=== PATIENT | female | born 1985 | race African-American/Black ===

== ENCOUNTER 2019-06-29 08:58 | Day surgery (SDC) | payer BC ==
--- NOTE | 2019-06-23 07:30 | PCM.HP.2 ---
H&P History of Present Illness - General Date of Service: 06/29/19 Admit Problem/Dx: Renaldo is a 34-year-old 3 para 10-1 white female with history of recurrent loss. Patient underwent evaluation for recurrent loss which consisted in part of an HSG which showed abnormal fill in the right side of the uterus and right fallopian tube. Patient's been advised to undergo laparoscopy, chromotubation, hysteroscopy with possible D&C. The procedure, risks, benefits, limitations and follow-up were discussed in detail the patient. She appears understand and wish to proceed. 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 He treated miscarriage with Cytotec Excedrin micrograms which brought about complete miscarriage. She was noted to have low progesterone with that and was on progesterone supplementation. She is sexually active. She desires . She denies any STI's in the past. She has had 1 vaginal delivery on 07/29/2010. That at 37 weeks gestational age after 18 hours of labor?delivering a 6 lbs. 3 oz. male named Ramiro. She had previous miscarriage on 02/01/2019 prior to the April 2019 miscarriage. She had menarche at age 11. Cycles every 25-28 days. No control to time conception. Last normal menstrual period was 2018. She is not had a normal cycle since her last miscarriage. Past medical history: 1. Miscarriage 2 2. Normal spontaneous vaginal delivery 1 3. Atypical squamous cells of undetermined significance on Pap smear in 2018 Past surgical history: 1. Rotator cuff repair 2006 Allergies: None Medications: 1 vitamins 1 daily Family history: Mother is alive and well but with arthritis. Father is alive and well. One brother is alive and well. Paternal grandmother is alive but had a stroke at approximately age 60+ years. Maternal grandfather is secondary to tongue and throat cancerwas a smoker. Paternal grandmother is alive but has Alzheimer's disease. No other known family history of cancer, bleeding or clotting disorders, anesthesia related issues or or infertility related issues. Social history: Patient is . She lives in [place]. 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 She is a college graduate. She does not use any significant loss of alcohol, drugs or tobacco. 's name is J Luis Judd. Review of systems: In general patient has no complaints. Skin: Negative Lungs: No infectious symptoms or shortness of breath Cardiovascular: No chest pain or exercise intolerance Breasts: No lumps, changes in size, pain, dimpling, discharge or axillary or supraclavicular concerns. GI: Negative : Negative Musculoskeletal: Negative Neurological: Negative In general the patient is well-developed, well-nourished, pleasant female of stated age in no acute distress. Skin is warm dry without lesions. HEENT, neck and back within normal limits. Lungs are clear with good breath sounds in all lung gautam. Cardiovascular exam shows regular and rhythm without murmurs. Breast exam deferred Abdomen is flat, soft, nontender without masses or organomegaly. Positive bowel sounds are noted. No inguinal lymphadenopathy or hernias are noted. Genital per speculum bimanual shows normal external genitalia, BUS, pubic hair pattern. There is normal support, secretions and estrogenization vagina. Uterus is small, anterior, freely mobile, without parametrial induration or adnexal abnormalities. Extremities and neurological exam are grossly within normal limits. Source of Information: Patient History Limitations: Reports: No Limitations - Related Data Allergies/Adverse Reactions: Allergies Allergy/AdvReac Type Severity Reaction Status Date / Time adhesive tape Allergy Rash Verified 06/21/19 08:52 H&P Review of Systems - Review of Systems: Review Of Systems: See Below Exam - Exam Exam: See Below *Q Meaningful Use (ADM) - VTE Risk Assess *Q Each Risk Factor Represents 1 Point: None Total Score 1 Point Risk Factors: 0 Each Risk Factor Represents 2 Points: None Total Score 2 Point Risk Factors: 0 Each Risk Factor Represents 3 Points: None Total Score 3 Point Risk Factors: 0 Each Risk Factor Represents 5 Points: None Total Score 5 Point Risk Factors: 0 Venous Thromboembolism Risk Factor Score *Q: 0 Problem List Initiated/Reviewed/Updated: Yes Assessment/Plan Comment:: 1. 34-year-old 3 para 1021 female with history of recurrent loss 2 with an abnormal hysterosalpingogram with what appears to be a filling defect in the right uterus and right fallopian tube. 2. Generally healthy female at low-risk for surgery 3. Desiring . Plan: 1. Laparoscopy with chromotubation, hysteroscopy with possible D&C scheduled for 06/29/2019, risks, benefits, limitations and follow-up were discussed with patient. She appears understand and wishes to proceed. 2. DVT prophylaxis with SCDs 3. Infection prophylaxis with Ancef 2 g IV preop 4. Preoperative labs to include CBC, urinalysis and urine test.
[~2019-06-29 08:58] MED LIST: Dexamethasone 4 MG/ML 5 ML MDV ONE; Lactated Ringers 0 ML ONE; Lidocaine 1%/Sod Bicarbonate in NS 8.4% 1 ML Syringe IDERM PRN; Midazolam 1 MG/ML 2 ML SDV ONE; Ondansetron 4 MG/2 ML SDV ONE; Propofol 200 MG/20 ML SDV ONE; Rocuronium 50 MG/5 ML Vial ONE; Sodium Chloride 0.9% 10 ML Syringe FLUSH PRN; fentaNYL 250 MCG/5 ML SDV ONE
--- NOTE | 2019-06-29 09:24 | PCM.PREANE ---
Preanesthetic Assessment - Anesthesia/Transfusion/Family Hx Anesthesia History: Prior Anesthesia Without Reaction Family History of Anesthesia Reaction: No Transfusion History: No Prior Transfusion(s) Intubation History: Unknown - Review of Systems General: No Symptoms Pulmonary: No Symptoms Cardiovascular: No Symptoms Gastrointestinal: No Symptoms (GERD) Neurological: No Symptoms (Lower back pain), Numbness (left leg on occasion.) Other: Reports: None, Sinus Problem (Seasonal allergies) - Physical Assessment NPO Status Date: 06/28/19 NPO Status Time: 21:00 Vital Signs: HR: 98 BP: 115/71 Resp: 20 Temp: 99.5F Sat: 98% Height: 1.66 m Weight: 71.214 kg ASA Class: 1 Mental Status: Alert & Oriented x3 Airway Class: Mallampati = 2 Dentition: Reports: Normal Dentition, Caries Thyro-Mental Finger Breadths: 3 Mouth Opening Finger Breadths: 3 ROM/Head Extension: Full Lungs: Clear to Auscultation, Normal Respiratory Effort Cardiovascular: Regular Rate, Regular Rhythm, No Murmurs - Lab Values: Laboratory Last Values WBC 4.33 K/mm3 (3.98-10.04) 06/28/19 11:53 RBC 5.37 M/mm3 (3.98-5.22) H 06/28/19 11:53 Hgb 15.4 gm/dl (11.2-15.7) 06/28/19 11:53 Hct 46.8 % (34.1-44.9) H 06/28/19 11:53 MCV 87.2 fl (79.4-94.8) 06/28/19 11:53 MCH 28.7 pg (25.6-32.2) 06/28/19 11:53 MCHC 32.9 g/dl (32.2-35.5) 06/28/19 11:53 RDW Std Deviation 40.5 fL (36.4-46.3) 06/28/19 11:53 Plt Count 316 K/mm3 (182-369) 06/28/19 11:53 MPV 10.4 fl (9.4-12.3) 06/28/19 11:53 Neut % (Auto) 45.4 % (34.0-71.1) 06/28/19 11:53 Lymph % (Auto) 42.5 % (19.3-51.7) 06/28/19 11:53 [place] % (Auto) 9.2 % (4.7-12.5) 06/28/19 11:53 Eos % (Auto) 1.8 (0.7-5.8) 06/28/19 11:53 Baso % (Auto) 0.9 % (0.1-1.2) 06/28/19 11:53 Neut # (Auto) 1.96 K/mm3 (1.56-6.13) 06/28/19 11:53 Lymph # (Auto) 1.84 K/mm3 (1.18-3.74) 06/28/19 11:53 [place] # (Auto) 0.40 K/mm3 (0.24-0.36) H 06/28/19 11:53 Eos # (Auto) 0.08 K/mm3 (0.04-0.36) 06/28/19 11:53 Baso # (Auto) 0.04 K/mm3 (0.01-0.08) 06/28/19 11:53 Urine Color Yellow (Yellow) 06/28/19 11:53 Urine Appearance Clear (Clear) 06/28/19 11:53 Urine pH 6.0 (5.0-8.0) 06/28/19 11:53 Ur Specific [place] 1.010 (1.005-1.030) 06/28/19 11:53 Urine Protein Negative (Negative) 06/28/19 11:53 Urine Glucose (UA) Negative (Negative) 06/28/19 11:53 Urine Ketones Negative (Negative) 06/28/19 11:53 Urine Occult Blood Negative (Negative) 06/28/19 11:53 Urine Nitrite Negative (Negative) 06/28/19 11:53 Urine Bilirubin Negative (Negative) 06/28/19 11:53 Urine Urobilinogen 0.2 (0.2-1.0) 06/28/19 11:53 Ur Leukocyte Esterase Negative (Negative) 06/28/19 11:53 Urine HCG, Qual Negative (NEGATIVE) 06/28/19 11:53 Above labs reviewed and noted and within acceptable ranges to proceed with scheduled procedure. - Allergies Allergies/Adverse Reactions: Allergies Allergy/AdvReac Type Severity Reaction Status Date / Time adhesive tape Allergy Rash Verified 06/28/19 15:08 - Anesthesia Plan Pre-Op Medication Ordered: None - Acknowledgements Anesthesia Type Planned: General Anesthesia Pt an Appropriate Candidate for the Planned Anesthesia: Yes Alternatives and Risks of Anesthesia Discussed w Pt/Guardian: Yes Pt/Guardian Understands and Agrees with Anesthesia Plan: Yes PreAnesthesia Questionnaire - Past Surgical History Female Surgical History: Reports: Breast Implant Musculoskeletal Surgical History: Reports: Other (See Below) (Rotator Cuff Repair in 2007) - CURRENT (IN HOUSE) MEDS Current Meds: Current Medications Lactated Ringer's (Ringers, Lactated) 1,000 mls @ 125 mls/hr IV ASDIRECTED SABRINA Stop: 06/29/19 23:00 Lidocaine/Sodium Bicarbonate (Buffered Lidocaine 1% In Ns 8.4%) 0.25 ml IDERM ONETIME PRN PRN Reason: Prior to IV Start Stop: 06/29/19 18:00 Sodium Chloride (Saline Flush) 10 ml FLUSH ASDIRECTED PRN PRN Reason: Keep Vein Open Stop: 06/29/19 18:00 Discontinued Medications Dexamethasone (Dexamethasone) Confirm Administered Dose 20 mg .ROUTE .STK-MED ONE Stop: 06/29/19 07:33 Fentanyl (Sublimaze) Confirm Administered Dose 250 mcg .ROUTE .STK-MED ONE Stop: 06/29/19 07:34 Lactated Ringer's (Ringers, Lactated) Confirm Administered Dose 1,000 mls @ as directed .ROUTE .STK-MED ONE Stop: 06/29/19 07:33 Midazolam HCl (Versed 1 Mg/Ml) Confirm Administered Dose 2 mg .ROUTE .STK-MED ONE Stop: 06/29/19 07:34 Ondansetron HCl (Zofran) Confirm Administered Dose 4 mg .ROUTE .STK-MED ONE Stop: 06/29/19 07:33 Propofol (Diprivan 20 Ml) Confirm Administered Dose 200 mg .ROUTE .STK-MED ONE Stop: 06/29/19 07:33 Rocuronium [place] (Zemuron) Confirm Administered Dose 50 mg .ROUTE .STK-MED ONE Stop: 06/29/19 07:33
[2019-06-29] MEDS ORDERED: Rocuronium 50 MG/5 ML Vial ONE (09:36)
[2019-06-29] MEDS ORDERED: Ketorolac 30 MG/ML SDV ONE (09:36)
[2019-06-29] MEDS ORDERED: Ondansetron 4 MG/2 ML SDV ONE (09:36)
[2019-06-29] MEDS ORDERED: HYDROmorphone 0.5 MG/0.5 ML Syringe ONE (09:36)
[2019-06-29] MEDS ORDERED: Dexamethasone 4 MG/ML SDV ONE (09:36)
[2019-06-29] MEDS ORDERED: ceFAZolin 1 GM Vial ONE (09:36)
[2019-06-29] MEDS ORDERED: Lactated Ringers 1,000 ML ONE (09:36)
[2019-06-29] MEDS ORDERED: Phenylephrine/Normal Saline 100 MCG/ML 10 ML Syringe ONE (09:36)
[2019-06-29] MEDS ORDERED: Lidocaine 1% 6 ML ONE (09:36)
[2019-06-29] MEDS ORDERED: Propofol 200 MG/20 ML SDV ONE (09:37)
[2019-06-29] MEDS ORDERED: fentaNYL 250 MCG/5 ML SDV ONE (09:37)
[2019-06-29] MEDS ORDERED: Midazolam 1 MG/ML 2 ML SDV ONE (09:37)
[2019-06-29] MEDS ORDERED: Methylene Blue 50 MG/10 ML Ampule ONE (09:55)
[2019-06-29] MEDS ORDERED: Bupivacaine 0.5% 30 ML SDV ONE (09:55)
[2019-06-29] MEDS ORDERED: Dextrose 5% in Water 100 ML ONE (09:57)
[2019-06-29] MEDS: Lactated Ringers 1,000 ML IV SCH ×2 (10:20→14:36)
[2019-06-29] MEDS ORDERED: Neostigmine Methylsulfate 1 MG/ML 5 ML Syringe ONE (10:57)
[2019-06-29] MEDS ORDERED: diphenhydrAMINE 50 MG/ML SDV IVPUSH PRN (11:04)
[2019-06-29] MEDS ORDERED: ePHEDrine 50 MG/ML SDV IVPUSH PRN (11:04)
[2019-06-29] MEDS ORDERED: HYDROmorphone 0.5 MG/0.5 ML Syringe IVPUSH PRN (11:04)
[2019-06-29] MEDS ORDERED: fentaNYL 100 MCG/2 ML SDV IVPUSH PRN (11:04)
[2019-06-29] MEDS ORDERED: Ondansetron 4 MG/2 ML SDV IVPUSH PRN ×2 (11:04→11:54)
[2019-06-29] MEDS ORDERED: Phenylephrine 1 MG in Sodium Chloride 0.9% 10 ML IV SCH (11:15)
[2019-06-29] MEDS ORDERED: Ibuprofen 600 MG Tab PO PRN (11:54)
[2019-06-29] MEDS ORDERED: Ketorolac 30 MG/ML SDV IVPUSH SCH (12:00)
--- NOTE | 2019-06-29 12:01 | PCM.OPNOTE ---
- General Post-Op/Procedure Note Date of Surgery/Procedure: 06/29/19 Operative Procedure(s): Laparoscopy, chromotubation, lysis of pelvic adhesions, hysteroscopy Findings: Laparoscopic findings included the following: -Pelvic adhesions involving the omentum and the anterior abdominal wall and the posterior wall of the uterus and the posterior cul-de-sac -Essentially normal fill and spill of methylene blue from left fallopian tube with chromotubation -Proximal blockage of right fallopian tube with no fill or spill of methylene blue was chromotubation -Apparent extravasation of methylene blue in the right side of the uterine body showing up with blue discoloration of myometrium and serosal surfaces with chromotubation -Uterine septum -Significant endometrial adhesions on both the right and left side of the septum with tubal ostia not visualized. 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 -Ovaries bilaterally were within normal limits as was the anterior cul-de-sac area, the appendix and the right and left liver lobes. Pre Op Diagnosis: 1. Recurrent loss 2. 2. Abnormal HSG with nonfilling right fallopian tube and apparent extravasation of radiopaque dye at the time of HSG. Post-Op Diagnosis: Same with findings as outlined: -Pelvic adhesions involving the omentum and the anterior abdominal wall and the posterior wall of the uterus and the posterior cul-de-sac. -Essentially normal fill and spill of methylene blue from left fallopian tube with chromotubation. -Proximal blockage of right fallopian tube with no fill or spill of methylene blue was chromotubation. -Apparent extravasation of methylene blue in the right side of the uterine body showing up with blue discoloration of myometrium and serosal surfaces with chromotubation. -Uterine septum. -Significant endometrial adhesions on both the right and left side of the septum with tubal ostia not visualized. 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 - Ovaries bilaterally were within normal limits as was the anterior cul-de-sac area, the appendix and the right and left liver lobes. Anesthesia Technique: General ET Tube Other Anesthesia Type: Marcaine 0.25% localtotal 10 mL Primary Surgeon: Adeel Gibbons Anesthesia Provider: Lilly Ramsey Fluid Replacement, Intraop: 1,300 Output, Urine Amount: 175 EBL in mLs: 5 Drain/Tube Comments:: Indwelling bladder catheter during surgery only. Complications: None Condition: Good Free Text/Narrative:: Surgery duration: 29 minutes Procedure: The patient was taken to the operating room and placed in supine position on the operative table. She had sequential compression stockings in place for DVT prophylaxis and had been given 2 g of Ancef IV for infection prophylaxis. She was administered general endotracheal anesthesia. After administration of anesthesia the patient was placed in dorsal lithotomy position and prepped and draped in usual fashion. An indwelling bladder catheter was placed as was a uterine manipulator. It should be noted the uterus sounded to 9 cm and was noted to be posterior to mid position. Infraumbilical incision site and suprapubic site were then infiltrated with approximately 3-4 mL of Marcaine 0.5%. 5 mm incisions were made in these areas. Verres needle was placed in the infraumbilical incision site and pneumoperitoneum was established was in 3 L of CO2. The laparoscopic sleeve was then placed as was the scope. Under direct visualization the suprapubic site was developed with a 5 mm port. A 5 mm right abdominal port was also placed visualization. Pelvis was evaluated findings as described below: -Pelvic adhesions involving the omentum adhered to the anterior abdominal wall. Also the posterior wall of the uterus adhered to the posterior cul-de-sac -Essentially normal fill and spill of methylene blue from left fallopian tube with chromotubation -Proximal blockage of right fallopian tube with no fill or spill of methylene blue was chromotubation -Apparent extravasation of methylene blue in the right side of the uterine body showing up with blue discoloration of myometrium and serosal surfaces with chromotubation -Ovaries bilaterally were within normal limits as was the anterior cul-de-sac area, the appendix and the right and left liver lobes. Omental adhesions were taken down as were the posterior uterine adhesions. Chromotubation was performed and showed normal fill and spill of the left fallopian tube. There is no fill nor spill from the right fallopian tube consistent with what appeared to be a proximal occlusion. There was however extravasation of dye into the myometrium and subserosal areas of the right side only of the uterus. The lower sleeve was removed under direct visualization. Upper port was removed without problems. The 2 port site incisions were closed with single subcuticular interrupted suture of 3-0 Monocryl. The incisions were further approximated with Dermabond skin glue. The uterine manipulator was removed. Patient was repositioned and hysteroscopy was performed. A 12 hysteroscope was placed. The endometrial cavity was distended with normal saline and hysteroscopy was performed. Findings are as follows: -Uterine septum -Significant endometrial adhesions on both the right and left side of the septum with tubal ostia not visualized. 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 Hysteroscopy was then discontinued. Was removed. The single-tooth tenaculum was removed from this anterior lip of the cervix. Fluid was removed from the vaginal vault. The Thomas catheter was removed. Patient was returned to the supine position and awakened from general endotracheal anesthesia. She left the operating room in good condition.
--- NOTE | 2019-06-29 12:11 | PCM.POSTAN ---
POST ANESTHESIA ASSESSMENT - MENTAL STATUS Mental Status: Alert - VITAL SIGNS Vital Signs: Last Vital Signs Temp 97.2f 06/29/19 1153 Pulse 109 06/29/19 1153 Resp 12 06/29/19 1153 BP 106/61 06/29/19 1153 Pulse Ox 98 06/29/19 1153 - RESPIRATORY Respiratory Status: Respiratory Rate WNL, Airway Patent, O2 Saturation Stable, Supplemental Oxygen - CARDIOVASCULAR CV Status: Pulse Rate WNL, Blood Pressure Stable - GASTROINTESTINAL GI Status: No Symptoms - POST OP HYDRATION Hydration Status: Adequate & Stable
--- NOTE | 2019-06-29 12:57 | PCM48HPAN ---
Post Anesthesia Note - EVALUATION WITHIN 48HRS OF ANESTHETIC Vital Signs in Normal Range: Yes Patient Participated in Evaluation: Yes Respiratory Function Stable: Yes Airway Patent: Yes Cardiovascular Function Stable: Yes Hydration Status Stable: Yes Pain Control Satisfactory: Yes Nausea and Vomiting Control Satisfactory: Yes Mental Status Recovered: Yes Vital Signs: Last Vital Signs Temp 36.3 C 06/29/19 12:33 Pulse 84 06/29/19 12:33 Resp 15 06/29/19 12:33 BP 105/62 06/29/19 12:33 Pulse Ox 100 06/29/19 12:33
== END 2019-06-29 15:21 | disposition home or self-care (01) ==
LOC: JD.SDS 08:58
PROVIDERS: ATTEND Obstetrics & Gynecology
DX: N96 Recurrent pregnancy loss (principal); R93.89 Abnormal findings on diagnostic imaging of other specified body structures; N73.6 Female pelvic peritoneal adhesions (postinfective); Z91.048 Other nonmedicinal substance allergy status
CPT/HCPCS: 36415; 49329; 58350; 81003; 81025; 85025; J0690; J1100; J1170; J1885; J2001; J2250; J2405; J2704; J2710; J3010; J3490; J7060; J7120; 00952; J2370

== ENCOUNTER 2020-12-15 14:11 | Inpatient (IN) | payer BC ==
[2020-12-15] MEDS ORDERED: Sodium Chloride 0.9% 10 ML Syringe FLUSH PRN (14:40)
[2020-12-15] MEDS ORDERED: Ondansetron 4 MG/2 ML SDV IVPUSH PRN (14:40)
[2020-12-15] MEDS ORDERED: Nalbuphine 10 MG/1 ML Vial IVPUSH PRN (14:40)
[2020-12-15] MEDS ORDERED: Oxytocin/Lactated Ringers 20 UNIT/1,000 ML BAG IV SCH (14:45)
[2020-12-15] MEDS ORDERED: FLU VACC QS2020-21(6MOS UP)/PF 60 MCG/0.5 ML SYRINGE IM ONE (15:00)
[2020-12-15] MEDS ORDERED: Lidocaine 1.5% with EPINEPHrine 1:200,000 5 ML Amp ONE (15:00)
[2020-12-15] MEDS: Lactated Ringers 1,000 ML IV SCH ×2 (15:02→15:45)
[2020-12-15] MEDS ORDERED: fentaNYL 100 MCG/2 ML SDV EPIDUR PRN (15:13)
[2020-12-15] MEDS ORDERED: diphenhydrAMINE 50 MG/ML SDV IVPUSH PRN (15:13)
[2020-12-15] MEDS ORDERED: ePHEDrine 50 MG/ML SDV IVPUSH PRN (15:13)
[2020-12-15] MEDS ORDERED: Bupivacaine/fentaNYL/NS 100 ML Bag EPIDUR PRN (15:13)
--- NOTE | 2020-12-15 15:34 | PCM.PREANE ---
Preanesthetic Assessment - Procedure Proposed Procedure: Continuous Labor epidural - Anesthesia/Transfusion/Family Hx Anesthesia History: Prior Anesthesia Without Reaction Transfusion History: No Prior Transfusion(s) Intubation History: Unknown - Review of Systems General: No Symptoms Pulmonary: No Symptoms Cardiovascular: No Symptoms Gastrointestinal: No Symptoms (GERD) Neurological: No Symptoms (Low back pain) Other: Reports: None, Sinus Problem (Seasonal) - Physical Assessment Vital Signs: Last Vital Signs Temp 98.4 F 12/15/20 14:12 Pulse 101 H 12/15/20 14:12 Resp 16 12/15/20 14:12 BP 130/76 12/15/20 14:12 Pulse Ox 100 12/15/20 14:12 Height: 1.63 m Weight: 85.91 kg ASA Class: 2 Mental Status: Alert & Oriented x3 Airway Class: Mallampati = 2 Dentition: Reports: Normal Dentition Thyro-Mental Finger Breadths: 3 Mouth Opening Finger Breadths: 3 ROM/Head Extension: Full Lungs: Clear to Auscultation, Normal Respiratory Effort Cardiovascular: Regular Rate, Regular Rhythm - Lab Values: Laboratory Last Values WBC 7.00 K/mm3 (3.98-10.04) 12/15/20 14:57 RBC 4.34 M/mm3 (3.98-5.22) 12/15/20 14:57 Hgb 11.9 gm/dl (11.2-15.7) 12/15/20 14:57 Hct 36.7 % (34.1-44.9) 12/15/20 14:57 MCV 84.6 fl (79.4-94.8) 12/15/20 14:57 MCH 27.4 pg (25.6-32.2) 12/15/20 14:57 MCHC 32.4 g/dl (32.2-35.5) 12/15/20 14:57 RDW Std Deviation 44.6 fL (36.4-46.3) 12/15/20 14:57 Plt Count 241 K/mm3 (182-369) 12/15/20 14:57 MPV 11.5 fl (9.4-12.3) 12/15/20 14:57 Neut % (Auto) 73.2 % (34.0-71.1) H 12/15/20 14:57 Lymph % (Auto) 17.1 % (19.3-51.7) L 12/15/20 14:57 [place] % (Auto) 9.0 % (4.7-12.5) 12/15/20 14:57 Eos % (Auto) 0.3 (0.7-5.8) L 12/15/20 14:57 Baso % (Auto) 0.1 % (0.1-1.2) 12/15/20 14:57 Neut # (Auto) 5.12 K/mm3 (1.56-6.13) 12/15/20 14:57 Lymph # (Auto) 1.20 K/mm3 (1.18-3.74) 12/15/20 14:57 [place] # (Auto) 0.63 K/mm3 (0.24-0.36) H 12/15/20 14:57 Eos # (Auto) 0.02 K/mm3 (0.04-0.36) L 12/15/20 14:57 Baso # (Auto) 0.01 K/mm3 (0.01-0.08) 12/15/20 14:57 - Allergies Allergies/Adverse Reactions: Allergies Allergy/AdvReac Type Severity Reaction Status Date / Time adhesive tape Allergy Rash Verified 12/15/20 14:22 - Acknowledgements Anesthesia Type Planned: Epidural Pt an Appropriate Candidate for the Planned Anesthesia: Yes Alternatives and Risks of Anesthesia Discussed w Pt/Guardian: Yes Pt/Guardian Understands and Agrees with Anesthesia Plan: Yes 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 - SUBSTANCE USE Tobacco Use Status *Q: Never Tobacco User Recreational Drug Use History: No - HOME MEDS Home Medications: Home Meds Ibuprofen [Motrin] 600 mg PO Q4H PRN tablet 06/29/19 [Rx] Pnv No.95/Ferrous Fum/Folic AC [ Tablet] 1 tab PO DAILY 06/29/19 [History] - CURRENT (IN HOUSE) MEDS Current Meds: Current Medications Diphenhydramine HCl (Diphenhydramine 50 Mg/Ml Sdv) 25 mg IVPUSH Q6H PRN PRN Reason: pruritis Ephedrine Sulfate (Ephedrine 50 Mg/Ml Sdv) 5 mg IVPUSH ASDIRECTED PRN PRN Reason: Hypotension Fentanyl (Fentanyl 100 Mcg/2 Ml Sdv) 100 mcg EPIDUR Q3H PRN PRN Reason: Pain Fentanyl/Bupivacaine HCl (Bupivacaine/Fentanyl/Ns 100 Ml Bag) 100 ml EPIDUR ASDIRECTED PRN PRN Reason: Pain Lactated Ringer's (Ringers, Lactated) 1,000 mls @ 100 mls/hr IV ASDIRECTED SABRINA Last Admin: 12/15/20 15:02 Dose: 999 mls/hr Documented by: Oxytocin/Lactated Ringer's (Pitocin In Lr 20 Units/1,000 Ml) 20 unit in 1,000 mls @ 500 mls/hr IV .CONTINUOUS SABRINA Nalbuphine HCl (Nalbuphine 10 Mg/1 Ml Vial) 10 mg IVPUSH Q2H PRN PRN Reason: Pain Ondansetron HCl (Ondansetron 4 Mg/2 Ml Sdv) 4 mg IVPUSH Q4H PRN PRN Reason: Nausea/Vomiting Sodium Chloride (Sodium Chloride 0.9% 10 Ml Syringe) 10 ml FLUSH ASDIRECTED PRN PRN Reason: Keep Vein Open Discontinued Medications Influenza Virus Vaccine (Flu Vacc [id number](6mos Up)/Pf 60 Mcg/0.5 Ml Syringe) 60 mcg IM .ONCE ONE Stop: 12/15/20 15:01
--- NOTE | 2020-12-15 15:44 | PCM.LDHP ---
L&D History of Present Illness - General Date of Service: 12/15/20 Admit Problem/Dx: Patient Status Order with Admit Dx/Problem 12/15/20 14:12 Patient Status [ADT] Routine 12/15/20 14:40 Patient Status [ADT] Routine Admission Diagnosis/Problem Admission Diagnosis/Problem Source of Information: Patient History Limitations: Reports: No Limitations - History of Present Illness Introduction:: 35-year-old -0-2-1 CARLOS 12/19/2020 estimated gestational age 39 weeks 3 days as labor delivery complaining of contractions since approximately noon today. Patient had been in the clinic on 12/12/2020 cervix 2 cm dilated 30% effaced soft posterior -3 station. On examination today and labor and delivery patient 3 to 4 cm dilated, 80% effaced, soft, posterior, -2 station presentation Vertex. No significant problems during this . No chronic medications. GBS negative /11/2019 blood type O+ antibody screen negative, hemoglobin/hematocrit 13.8/40.9 platelets 316,000, rubella immune, serology nonreactive, urine culture no growth after 2 days, Mykel B surface antigen negative, V-. GC chlamydia probe negative. 02/10/2021/hematocrit 12.5/37.4 platelets 254,000 OB glucose screen 150 serology nonreactive 09/16/2020 fasting blood sugar 86, 1 hour 153, 2-hour 132, 3-hour 128. 11/07/2020 hemoglobin/hematocrit 11.8/36.7 platelets 238,000. /11/2020 group B strep negative. In labor and delivery. Epidural being placed at this time. 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 Social & Family History - Tobacco Use Tobacco Use Status *Q: Never Tobacco User - Recreational Drug Use Recreational Drug Use: No H&P Review of Systems - Review of Systems: Review Of Systems: See Below General: Reports: No Symptoms HEENT: Reports: No Symptoms Pulmonary: Reports: No Symptoms Cardiovascular: Reports: No Symptoms Gastrointestinal: Reports: No Symptoms Genitourinary: Reports: No Symptoms Musculoskeletal: Reports: No Symptoms Skin: Reports: No Symptoms Psychiatric: Reports: No Symptoms Neurological: Reports: No Symptoms Hematologic/Lymphatic: Reports: No Symptoms Immunologic: Reports: No Symptoms L&D Exam - Exam Exam: See Below - Vital Signs Vital Signs: Last Vital Signs Temp 98.4 F 12/15/20 14:12 Pulse 101 H 12/15/20 14:12 Resp 16 12/15/20 14:12 BP 130/76 12/15/20 14:12 Pulse Ox 100 12/15/20 14:12 Weight: 189 lb 6.4 oz - OB Specific Contraction Intensity: Moderate Movement: Active Heart Tones: Present Heart Tones per Min: 130 Heart Rate (FHR) Variability: Moderate (6-25 bmp) Presentation: Vertex - Barcenas Score Barcenas Score Cervix Position: Posterior Barcenas Score Consistency: Soft Barcenas Score Effacement: >80% Barcenas Score Dilation: 3-4 cm Barcenas Score Infant's Station: -2 Barcenas Score Total: 8 - Exam General: Alert, Oriented HEENT: Conjunctiva Clear, Mucosa Moist & [place] Neck: Supple, Trachea Midline Lungs: Clear to Auscultation, Normal Respiratory Effort Cardiovascular: Regular Rate, Regular Rhythm GI/Abdominal Exam: Normal Bowel Sounds, Non-Tender Genitourinary: Normal external exam Extremities: Normal Inspection, Non-Tender, No Pedal Edema, Normal Capillary Refill Skin: Warm, Dry, Intact Psychiatric: Alert, Normal Affect, Normal Mood - Patient Data Lab Results Last 24 hrs: Laboratory Results - last 24 hr 12/15/20 12/15/20 Range/Units 14:44 14:57 WBC 7.00 (3.98-10.04) K/mm3 RBC 4.34 (3.98-5.22) M/mm3 Hgb 11.9 (11.2-15.7) gm/dl Hct 36.7 (34.1-44.9) % MCV 84.6 (79.4-94.8) fl MCH 27.4 (25.6-32.2) pg MCHC 32.4 (32.2-35.5) g/dl RDW Std Deviation 44.6 (36.4-46.3) fL Plt Count 241 (182-369) K/mm3 MPV 11.5 (9.4-12.3) fl Neut % (Auto) 73.2 H (34.0-71.1) % Lymph % (Auto) 17.1 L (19.3-51.7) % [place] % (Auto) 9.0 (4.7-12.5) % Eos % (Auto) 0.3 L (0.7-5.8) Baso % (Auto) 0.1 (0.1-1.2) % Neut # (Auto) 5.12 (1.56-6.13) K/mm3 Lymph # (Auto) 1.20 (1.18-3.74) K/mm3 [place] # (Auto) 0.63 H (0.24-0.36) K/mm3 Eos # (Auto) 0.02 L (0.04-0.36) K/mm3 Baso # (Auto) 0.01 (0.01-0.08) K/mm3 SARS-CoV-2 RNA (SAY) Negative (NEGATIVE) Result Diagrams: 12/15/20 14:57 - Problem List (1) 39 weeks gestation of SNOMED Code(s): 41855549 ICD Code: Z3A.39 - 39 WEEKS GESTATION OF Status: Acute Current Visit: Yes Problem List Initiated/Reviewed/Updated: No Orders Last 24hrs: Active Orders 24 hr Category Date Time Status Patient Status [ADT] Routine ADT 12/15/20 14:40 Active Activity as Tolerated [RC] PFP Care 12/15/20 14:40 Active Communication Order [RC] ASDIRECTED Care 12/15/20 14:40 Active Heart Tones [RC] ASDIRECTED Care 12/15/20 14:40 Active Non Stress Test [RC] PER UNIT ROUTINE Care 12/15/20 14:12 Active Influenza Vaccine Charge [RC] .DISCHARGE Care 12/15/20 14:58 Active Notify Provider [RC] ASDIRECTED Care 12/15/20 15:13 Active Notify Provider [RC] PFP Care 12/15/20 14:40 Active Notify Provider [RC] PRN Care 12/15/20 14:40 Active Peripheral IV Care [RC] . DIRECTED Care 12/15/20 14:40 Active Vaginal Exam [RC] PRN Care 12/15/20 14:12 Active Vital Signs [RC] PER UNIT ROUTINE Care 12/15/20 14:12 Active Regular Diet [DIET] Diet 12/15/20 Lunch Active BLOOD BANK HOLD SPECIMEN [BBK] Stat Lab 12/15/20 14:40 Ordered RAPID PLASMA REAGIN,RPR [CHEM] Routine Lab 12/15/20 14:57 Received Bupivacaine/fentaNYL/NS [fentaNYL/Bupivacaine/NS 2 MCG- Med 12/15/20 15:13 Active 0.125% 100 ML] 100 ml EPIDUR ASDIRECTED PRN Lactated Ringers [Ringers, Lactated] 1,000 ml Med 12/15/20 14:45 Active IV ASDIRECTED Nalbuphine [Nubain] Med 12/15/20 14:40 Active 10 mg IVPUSH Q2H PRN Ondansetron [Zofran] Med 12/15/20 14:40 Active 4 mg IVPUSH Q4H PRN Oxytocin/Lactated Ringers [Pitocin in LR 20 Units/1,000 Med 12/15/20 14:45 Active ML] 20 unit in 1,000 ml IV .CONTINUOUS Sodium Chloride 0.9% [Saline Flush] Med 12/15/20 14:40 Active 10 ml FLUSH ASDIRECTED PRN diphenhydrAMINE [Benadryl] Med 12/15/20 15:13 Active 25 mg IVPUSH Q6H PRN ePHEDrine [ePHEDrine sulfate] Med 12/15/20 15:13 Active 5 mg IVPUSH ASDIRECTED PRN fentaNYL [Sublimaze] Med 12/15/20 15:13 Active 100 mcg EPIDUR Q3H PRN Electronic Heart Tones Ext w TOCO [WOMSER] Oth 12/15/20 14:40 Ordered Routine Electronic Heart Tones Internal [WOMSER] Per Unit Oth 12/15/20 14:40 Ordered Routine Peripheral IV Insertion Adult [OM.PC] Routine Oth 12/15/20 14:40 Ordered Resuscitation Status Routine Resus Stat 12/15/20 14:12 Ordered Medication Orders Diphenhydramine HCl (Diphenhydramine 50 Mg/Ml Sdv) 25 mg IVPUSH Q6H PRN PRN Reason: pruritis Ephedrine Sulfate (Ephedrine 50 Mg/Ml Sdv) 5 mg IVPUSH ASDIRECTED PRN PRN Reason: Hypotension Fentanyl (Fentanyl 100 Mcg/2 Ml Sdv) 100 mcg EPIDUR Q3H PRN PRN Reason: Pain Fentanyl/Bupivacaine HCl (Bupivacaine/Fentanyl/Ns 100 Ml Bag) 100 ml EPIDUR ASDIRECTED PRN PRN Reason: Pain Lactated Ringer's (Ringers, Lactated) 1,000 mls @ 100 mls/hr IV ASDIRECTED SABRINA Last Admin: 12/15/20 15:02 Dose: 999 mls/hr Documented by: OLIVIA Oxytocin/Lactated Ringer's (Pitocin In Lr 20 Units/1,000 Ml) 20 unit in 1,000 mls @ 500 mls/hr IV .CONTINUOUS [facility] Nalbuphine HCl (Nalbuphine 10 Mg/1 Ml Vial) 10 mg IVPUSH Q2H PRN PRN Reason: Pain Ondansetron HCl (Ondansetron 4 Mg/2 Ml Sdv) 4 mg IVPUSH Q4H PRN PRN Reason: Nausea/Vomiting Sodium Chloride (Sodium Chloride 0.9% 10 Ml Syringe) 10 ml FLUSH ASDIRECTED PRN PRN Reason: Keep Vein Open Assessment/Plan Comment:: Plan labor and delivery.
--- NOTE | 2020-12-15 16:14 | PCM.SN.2 ---
- Free Text/Narrative Note: Amniotomy, clear fluid cervix 5 cm, 90%, soft, mid-position, vertex -1 Cat I FHR before and after amniotomy.
--- NOTE | 2020-12-15 17:23 | PCM.SN.2 ---
- Free Text/Narrative Note: Cervix 6 cm, 100%, soft, anterior. Cat I FHR. Good relief from epidural.
--- NOTE | 2020-12-15 18:41 | PCM.DEL ---
L & D Note - General Info Date of Service: 12/15/20 Mother's Due Date: 12/19/20 - Delivery Note Labor: Spontaneous, Augmented by ARM Delivery Outcome: Livebirth (Friday 1814 hrs. male liveborn GLO under epidural anesthesia over second-degree midline vaginal laceration Apgars 8/9 weight 3390 g / 7 pounds 7.6 ounces nuchal cord tight reduced over the shoulders) Infant Delivery Method: Spontaneous Vaginal Delivery-Single Delivery Mode: Spontaneous Presentation: Right Occiput Anterior (GLO) Nuchal Cord: Present (X1 tight) Prep: Povidone-Iodine (Betadine Anesthesia Type: Epidural Episiotomy Type: None Laceration: 2nd Degree (9 sutured with 3-0 Monocryl x2) Suture type: Other (Monocryl) Suture size: 3-0 (2) Placenta: Intact, Spontaneous Cord: 3 Vessels Estimated Blood Loss: 650 Provider: Porter Werner Score 1 min: 8 Score 5 min: 9 - General Info Date of Service: 12/15/20 Functional Status: Reports: Pain Controlled - Review of Systems General: Reports: No Symptoms HEENT: Reports: No Symptoms Pulmonary: Reports: No Symptoms Cardiovascular: Reports: No Symptoms Gastrointestinal: Reports: No Symptoms Genitourinary: Reports: No Symptoms Musculoskeletal: Reports: No Symptoms Skin: Reports: No Symptoms Neurological: Reports: No Symptoms Psychiatric: Reports: No Symptoms - Patient Data Vitals - Most Recent: Last Vital Signs Temp 98.4 F 12/15/20 14:12 Pulse 101 H 12/15/20 14:12 Resp 16 12/15/20 14:12 BP 130/76 12/15/20 14:12 Pulse Ox 100 12/15/20 14:12 Weight - Most Recent: 189 lb 6.4 oz I&O - Last 24 Hours: Intake & Output 12/15/20 12/15/20 12/15/20 06:59 14:59 22:59 Intake Total 2000 Output Total 300 Balance 1700 Lab Results Last 24 Hours: Laboratory Results - last 24 hr 12/15/20 12/15/20 Range/Units 14:44 14:57 WBC 7.00 (3.98-10.04) K/mm3 RBC 4.34 (3.98-5.22) M/mm3 Hgb 11.9 (11.2-15.7) gm/dl Hct 36.7 (34.1-44.9) % MCV 84.6 (79.4-94.8) fl MCH 27.4 (25.6-32.2) pg MCHC 32.4 (32.2-35.5) g/dl RDW Std Deviation 44.6 (36.4-46.3) fL Plt Count 241 (182-369) K/mm3 MPV 11.5 (9.4-12.3) fl Neut % (Auto) 73.2 H (34.0-71.1) % Lymph % (Auto) 17.1 L (19.3-51.7) % [place] % (Auto) 9.0 (4.7-12.5) % Eos % (Auto) 0.3 L (0.7-5.8) Baso % (Auto) 0.1 (0.1-1.2) % Neut # (Auto) 5.12 (1.56-6.13) K/mm3 Lymph # (Auto) 1.20 (1.18-3.74) K/mm3 [place] # (Auto) 0.63 H (0.24-0.36) K/mm3 Eos # (Auto) 0.02 L (0.04-0.36) K/mm3 Baso # (Auto) 0.01 (0.01-0.08) K/mm3 SARS-CoV-2 RNA (SAY) Negative (NEGATIVE) Med Orders - Current: Current Medications Diphenhydramine HCl (Diphenhydramine 50 Mg/Ml Sdv) 25 mg IVPUSH Q6H PRN PRN Reason: pruritis Ephedrine Sulfate (Ephedrine 50 Mg/Ml Sdv) 5 mg IVPUSH ASDIRECTED PRN PRN Reason: Hypotension Fentanyl (Fentanyl 100 Mcg/2 Ml Sdv) 100 mcg EPIDUR Q3H PRN PRN Reason: Pain Last Admin: 12/15/20 15:43 Dose: 100 mcg Documented by: Fentanyl/Bupivacaine HCl (Bupivacaine/Fentanyl/Ns 100 Ml Bag) 100 ml EPIDUR ASDIRECTED PRN PRN Reason: Pain Last Admin: 12/15/20 15:44 Dose: 100 ml Documented by: Lactated Ringer's (Ringers, Lactated) 1,000 mls @ 100 mls/hr IV ASDIRECTED SABRINA Last Admin: 12/15/20 15:45 Dose: 999 mls/hr Documented by: Oxytocin/Lactated Ringer's (Pitocin In Lr 20 Units/1,000 Ml) 20 unit in 1,000 mls @ 500 mls/hr IV .CONTINUOUS SABRINA Last Admin: 12/15/20 18:15 Dose: 500 mls/hr Documented by: Nalbuphine HCl (Nalbuphine 10 Mg/1 Ml Vial) 10 mg IVPUSH Q2H PRN PRN Reason: Pain Ondansetron HCl (Ondansetron 4 Mg/2 Ml Sdv) 4 mg IVPUSH Q4H PRN PRN Reason: Nausea/Vomiting Last Admin: 12/15/20 16:38 Dose: 4 mg Documented by: Sodium Chloride (Sodium Chloride 0.9% 10 Ml Syringe) 10 ml FLUSH ASDIRECTED PRN PRN Reason: Keep Vein Open Discontinued Medications Influenza Virus Vaccine (Flu Vacc [id number](6mos Up)/Pf 60 Mcg/0.5 Ml Syringe) 60 mcg IM .ONCE ONE Stop: 12/15/20 15:01 - Exam General: Alert, Oriented HEENT: Pupils Equal, Pupils Reactive, Mucous Membr. Moist/[place] Neck: Supple Lungs: Clear to Auscultation, Normal Respiratory Effort Cardiovascular: Regular Rate, Regular Rhythm GI/Abdominal Exam: Normal Bowel Sounds, Soft, Non-Tender Extremities: Normal Inspection, Non-Tender, No Pedal Edema, Normal Capillary Refill Skin: Warm, Dry, Intact Wound/Incisions: Healing Well Psy/Mental Status: Alert, Normal Affect, Normal Mood - Problem List & Annotations (1) 39 weeks gestation of SNOMED Code(s): 76867790 Code(s): Z3A.39 - 39 WEEKS GESTATION OF Status: Acute Current Visit: Yes (2) Labor and delivery complicated by cord around neck, with compression, not applicable or unspecified SNOMED Code(s): 863760940 Code(s): O69.1XX0 - LABOR AND DELIVERY COMP BY CORD AROUND NECK, W COMPRSN, UNSP Status: Acute Current Visit: Yes (3) Second degree perineal laceration during delivery SNOMED Code(s): 8387392 Code(s): O70.1 - SECOND DEGREE PERINEAL LACERATION DURING DELIVERY Status: Acute Current Visit: Yes - Problem List Review Problem List Initiated/Reviewed/Updated: No - My Orders Last 24 Hours: My Active Orders 12/15/20 Lunch Regular Diet [DIET] 12/15/20 14:12 Non Stress Test [RC] PER UNIT ROUTINE Vaginal Exam [RC] PRN Vital Signs [RC] PER UNIT ROUTINE Resuscitation Status Routine 12/15/20 14:40 Patient Status [ADT] Routine Activity as Tolerated [RC] PFP Communication Order [RC] ASDIRECTED Heart Tones [RC] ASDIRECTED Notify Provider [RC] PFP Notify Provider [RC] PRN Peripheral IV Care [RC] . DIRECTED BLOOD BANK HOLD SPECIMEN [BBK] Stat Nalbuphine [Nubain] 10 mg IVPUSH Q2H PRN Ondansetron [Zofran] 4 mg IVPUSH Q4H PRN Sodium Chloride 0.9% [Saline Flush] 10 ml FLUSH ASDIRECTED PRN Electronic Heart Tones Ext w TOCO [WOMSER] Routine Electronic Heart Tones Internal [WOMSER] Per Unit Routine Peripheral IV Insertion Adult [OM.PC] Routine 12/15/20 14:45 Lactated Ringers [Ringers, Lactated] 1,000 ml IV ASDIRECTED Oxytocin/Lactated Ringers [Pitocin in LR 20 Units/1,000 ML] 20 unit in 1,000 ml IV .CONTINUOUS 12/15/20 14:57 RAPID PLASMA REAGIN,RPR [CHEM] Routine 12/15/20 14:58 Influenza Vaccine Charge [RC] .DISCHARGE - Plan Plan:: Plan labor and delivery.
[2020-12-15] MEDS ORDERED: Witch Hazel Medicated Pads 40/Jar TOP PRN (18:46)
[2020-12-15] MEDS ORDERED: Acetaminophen 325 MG Tab PO PRN (18:46)
[2020-12-15] MEDS ORDERED: Benzocaine/Menthol 20%-0.5% Spray 56 GM Canister TOP PRN (18:46)
[2020-12-15] MEDS: Docusate Sodium 100 MG Cap PO PRN (20:02)
[2020-12-15] MEDS: Ibuprofen 600 MG Tab PO PRN (20:03)
[2020-12-16] MEDS: Ibuprofen 600 MG Tab PO PRN ×5 (05:01→22:22)
--- NOTE | 2020-12-16 05:39 | PCM48HPAN ---
Post Anesthesia Note - EVALUATION WITHIN 48HRS OF ANESTHETIC Vital Signs in Normal Range: Yes Patient Participated in Evaluation: Yes Respiratory Function Stable: Yes Airway Patent: Yes Cardiovascular Function Stable: Yes Hydration Status Stable: Yes Pain Control Satisfactory: Yes Nausea and Vomiting Control Satisfactory: Yes Mental Status Recovered: Yes Vital Signs: Last Vital Signs Temp 97.9 F 12/16/20 02:49 Pulse 98 12/16/20 02:49 Resp 16 12/16/20 02:49 BP 112/75 12/16/20 02:49 Pulse Ox 99 12/16/20 02:49 - COMMENTS/OBSERVATIONS Free Text/Narrative:: Patient is on her day 1. Stated understanding about possible backaches following epidural anesthesia. Mentions having no back soreness at this time. Explanation given about importance of avoiding back straining. Denies any headache or lightheadedness at this time. Comfortable now. Ambulating, no difficulty urinating.
[2020-12-16] MEDS: Docusate Sodium 100 MG Cap PO PRN ×2 (08:02→22:21)
--- NOTE | 2020-12-16 10:25 | PCM.SN.2 ---
- Free Text/Narrative Note: Afebrile, no heavy vaginal bleeding, uterus involuting normally, no leg cramping. Probably home tomorrow
[2020-12-17] MEDS: Ibuprofen 600 MG Tab PO PRN ×2 (04:24→08:52)
[2020-12-17] MEDS: Docusate Sodium 100 MG Cap PO PRN (08:52)
--- NOTE | 2020-12-17 10:23 | PCM.DCSUM1 ---
Discharge Summary - Hospital Course Free Text/Narrative:: [facility] L/D Delivery Note Patient Name: DAI SWEENEY Date of : 83 Patient Status: Inpatient Attending Provider: Porter Werner Date: 12/15/20 18:35 Initialization Date: 12/15/20 18:35 L & D Note - General Info Date of Service: 12/15/20 Mother's Due Date: 12/19/20 - Delivery Note Labor: Spontaneous, Augmented by ARM Delivery Outcome: Livebirth (Friday 1814 hrs. male liveborn GLO under epidural anesthesia over second-degree midline vaginal laceration Apgars 8/9 weight 3390 g / 7 pounds 7.6 ounces nuchal cord tight reduced over the shoulders) Delivery Method: Spontaneous Vaginal Delivery-Single Delivery Mode: Spontaneous Presentation: Right Occiput Anterior (GLO) Nuchal Cord: Present (X1 tight) Prep: Povidone-Iodine (Betadine Anesthesia Type: Epidural Episiotomy Type: None Laceration: 2nd Degree (9 sutured with 3-0 Monocryl x2) Suture type: Other (Monocryl) Suture size: 3-0 (2) Placenta: Intact, Spontaneous Cord: 3 Vessels Estimated Blood Loss: 650 Provider: Porter Werner Score 1 min: 8 Score 5 min: 9 - General Info Date of Service: 12/15/20 Functional Status: Reports: Pain Controlled - Review of Systems General: Reports: No Symptoms HEENT: Reports: No Symptoms Pulmonary: Reports: No Symptoms Cardiovascular: Reports: No Symptoms Gastrointestinal: Reports: No Symptoms Genitourinary: Reports: No Symptoms Musculoskeletal: Reports: No Symptoms Skin: Reports: No Symptoms Neurological: Reports: No Symptoms Psychiatric: Reports: No Symptoms - Patient Data Vitals - Most Recent: Last Vital Signs Temp 98.4 F 12/15/20 14:12 Pulse 101 H 12/15/20 14:12 Resp 16 12/15/20 14:12 BP 130/76 12/15/20 14:12 Pulse Ox 100 12/15/20 14:12 Weight - Most Recent: 189 lb 6.4 oz I&O - Last 24 Hours: Intake & Output 12/15/20 12/15/20 12/15/20 06:59 14:59 22:59 Intake Total 2000 Output Total 300 Balance 1700 Lab Results Last 24 Hours: Laboratory Results - last 24 hr 12/15/20 12/15/20 Range/Units 14:44 14:57 WBC 7.00 (3.98-10.04) K/mm3 RBC 4.34 (3.98-5.22) M/mm3 Hgb 11.9 (11.2-15.7) gm/dl Hct 36.7 (34.1-44.9) % MCV 84.6 (79.4-94.8) fl MCH 27.4 (25.6-32.2) pg MCHC 32.4 (32.2-35.5) g/dl RDW Std Deviation 44.6 (36.4-46.3) fL Plt Count 241 (182-369) K/mm3 MPV 11.5 (9.4-12.3) fl Neut % (Auto) 73.2 H (34.0-71.1) % Lymph % (Auto) 17.1 L (19.3-51.7) % [place] % (Auto) 9.0 (4.7-12.5) % Eos % (Auto) 0.3 L (0.7-5.8) Baso % (Auto) 0.1 (0.1-1.2) % Neut # (Auto) 5.12 (1.56-6.13) K/mm3 Lymph # (Auto) 1.20 (1.18-3.74) K/mm3 [place] # (Auto) 0.63 H (0.24-0.36) K/mm3 Eos # (Auto) 0.02 L (0.04-0.36) K/mm3 Baso # (Auto) 0.01 (0.01-0.08) K/mm3 SARS-CoV-2 RNA (SAY) Negative (NEGATIVE) Med Orders - Current: Current Medications Diphenhydramine HCl (Diphenhydramine 50 Mg/Ml Sdv) 25 mg IVPUSH Q6H PRN PRN Reason: pruritis Ephedrine Sulfate (Ephedrine 50 Mg/Ml Sdv) 5 mg IVPUSH ASDIRECTED PRN PRN Reason: Hypotension Fentanyl (Fentanyl 100 Mcg/2 Ml Sdv) 100 mcg EPIDUR Q3H PRN PRN Reason: Pain Last Admin: 12/15/20 15:43 Dose: 100 mcg Documented by: Fentanyl/Bupivacaine HCl (Bupivacaine/Fentanyl/Ns 100 Ml Bag) 100 ml EPIDUR ASDIRECTED PRN PRN Reason: Pain Last Admin: 12/15/20 15:44 Dose: 100 ml Documented by: Lactated Ringer's (Ringers, Lactated) 1,000 mls @ 100 mls/hr IV ASDIRECTED SABRINA Last Admin: 12/15/20 15:45 Dose: 999 mls/hr Documented by: Oxytocin/Lactated Ringer's (Pitocin In Lr 20 Units/1,000 Ml) 20 unit in 1,000 mls @ 500 mls/hr IV .CONTINUOUS SABRINA Last Admin: 12/15/20 18:15 Dose: 500 mls/hr Documented by: Nalbuphine HCl (Nalbuphine 10 Mg/1 Ml Vial) 10 mg IVPUSH Q2H PRN PRN Reason: Pain Ondansetron HCl (Ondansetron 4 Mg/2 Ml Sdv) 4 mg IVPUSH Q4H PRN PRN Reason: Nausea/Vomiting Last Admin: 12/15/20 16:38 Dose: 4 mg Documented by: Sodium Chloride (Sodium Chloride 0.9% 10 Ml Syringe) 10 ml FLUSH ASDIRECTED PRN PRN Reason: Keep Vein Open Discontinued Medications Influenza Virus Vaccine (Flu Vacc [id number](6mos Up)/Pf 60 Mcg/0.5 Ml Syringe) 60 mcg IM .ONCE ONE Stop: 12/15/20 15:01 - Exam General: Alert, Oriented HEENT: Pupils Equal, Pupils Reactive, Mucous Membr. Moist/[place] Neck: Supple Lungs: Clear to Auscultation, Normal Respiratory Effort Cardiovascular: Regular Rate, Regular Rhythm GI/Abdominal Exam: Normal Bowel Sounds, Soft, Non-Tender Extremities: Normal Inspection, Non-Tender, No Pedal Edema, Normal Capillary Refill Skin: Warm, Dry, Intact Wound/Incisions: Healing Well Psy/Mental Status: Alert, Normal Affect, Normal Mood - Problem List & Annotations (1) 39 weeks gestation of SNOMED Code(s): 50313498 Code(s): Z3A.39 - 39 WEEKS GESTATION OF Status: Acute Current Visit: Yes (2) Labor and delivery complicated by cord around neck, with compression, not applicable or unspecified SNOMED Code(s): 031425337 Code(s): O69.1XX0 - LABOR AND DELIVERY COMP BY CORD AROUND NECK, W COMPRSN, UNSP Status: Acute Current Visit: Yes (3) Second degree perineal laceration during delivery SNOMED Code(s): 0366816 Code(s): O70.1 - SECOND DEGREE PERINEAL LACERATION DURING DELIVERY Status: Acute Current Visit: Yes - Problem List Review Problem List Initiated/Reviewed/Updated: No - My Orders Last 24 Hours: My Active Orders 12/15/20 Lunch Regular Diet [DIET] 12/15/20 14:12 Non Stress Test [RC] PER UNIT ROUTINE Vaginal Exam [RC] PRN Vital Signs [RC] PER UNIT ROUTINE Resuscitation Status Routine 12/15/20 14:40 Patient Status [ADT] Routine Activity as Tolerated [RC] PFP Communication Order [RC] ASDIRECTED Heart Tones [RC] ASDIRECTED Notify Provider [RC] PFP Notify Provider [RC] PRN Peripheral IV Care [RC] . DIRECTED BLOOD BANK HOLD SPECIMEN [BBK] Stat Nalbuphine [Nubain] 10 mg IVPUSH Q2H PRN Ondansetron [Zofran] 4 mg IVPUSH Q4H PRN Sodium Chloride 0.9% [Saline Flush] 10 ml FLUSH ASDIRECTED PRN Electronic Heart Tones Ext w TOCO [WOMSER] Routine Electronic Heart Tones Internal [WOMSER] Per Unit Routine Peripheral IV Insertion Adult [OM.PC] Routine 12/15/20 14:45 Lactated Ringers [Ringers, Lactated] 1,000 ml IV ASDIRECTED Oxytocin/Lactated Ringers [Pitocin in LR 20 Units/1,000 ML] 20 unit in 1,000 ml IV .CONTINUOUS 12/15/20 14:57 RAPID PLASMA REAGIN,RPR [CHEM] Routine 12/15/20 14:58 Influenza Vaccine Charge [RC] .DISCHARGE - Plan Plan:: Plan labor and delivery. HPI Initial Comments: [facility] L/D Delivery Note Patient Name: DAI SWEENEY Date of : 83 Patient Status: Inpatient Attending Provider: Porter Werner Date: 12/15/20 18:35 Initialization Date: 12/15/20 18:35 L & D Note - General Info Date of Service: 12/15/20 Mother's Due Date: 12/19/20 - Delivery Note Labor: Spontaneous, Augmented by ARM Delivery Outcome: Livebirth (Friday 1814 hrs. male liveborn GLO under epidural anesthesia over second-degree midline vaginal laceration Apgars 8/9 weight 3390 g / 7 pounds 7.6 ounces nuchal cord tight reduced over the shoulders) Infant Delivery Method: Spontaneous Vaginal Delivery-Single Delivery Mode: Spontaneous Presentation: Right Occiput Anterior (GLO) Nuchal Cord: Present (X1 tight) Prep: Povidone-Iodine (Betadine Anesthesia Type: Epidural Episiotomy Type: None Laceration: 2nd Degree (9 sutured with 3-0 Monocryl x2) Suture type: Other (Monocryl) Suture size: 3-0 (2) Placenta: Intact, Spontaneous Cord: 3 Vessels Estimated Blood Loss: 650 Provider: Porter Werner Score 1 min: 8 Score 5 min: 9 - General Info Date of Service: 12/15/20 Functional Status: Reports: Pain Controlled - Review of Systems General: Reports: No Symptoms HEENT: Reports: No Symptoms Pulmonary: Reports: No Symptoms Cardiovascular: Reports: No Symptoms Gastrointestinal: Reports: No Symptoms Genitourinary: Reports: No Symptoms Musculoskeletal: Reports: No Symptoms Skin: Reports: No Symptoms Neurological: Reports: No Symptoms Psychiatric: Reports: No Symptoms - Patient Data Vitals - Most Recent: Last Vital Signs Temp 98.4 F 12/15/20 14:12 Pulse 101 H 12/15/20 14:12 Resp 16 12/15/20 14:12 BP 130/76 12/15/20 14:12 Pulse Ox 100 12/15/20 14:12 Weight - Most Recent: 189 lb 6.4 oz I&O - Last 24 Hours: Intake & Output 12/15/20 12/15/20 12/15/20 06:59 14:59 22:59 Intake Total 2000 Output Total 300 Balance 1700 Lab Results Last 24 Hours: Laboratory Results - last 24 hr 12/15/20 12/15/20 Range/Units 14:44 14:57 WBC 7.00 (3.98-10.04) K/mm3 RBC 4.34 (3.98-5.22) M/mm3 Hgb 11.9 (11.2-15.7) gm/dl Hct 36.7 (34.1-44.9) % MCV 84.6 (79.4-94.8) fl MCH 27.4 (25.6-32.2) pg MCHC 32.4 (32.2-35.5) g/dl RDW Std Deviation 44.6 (36.4-46.3) fL Plt Count 241 (182-369) K/mm3 MPV 11.5 (9.4-12.3) fl Neut % (Auto) 73.2 H (34.0-71.1) % Lymph % (Auto) 17.1 L (19.3-51.7) % [place] % (Auto) 9.0 (4.7-12.5) % Eos % (Auto) 0.3 L (0.7-5.8) Baso % (Auto) 0.1 (0.1-1.2) % Neut # (Auto) 5.12 (1.56-6.13) K/mm3 Lymph # (Auto) 1.20 (1.18-3.74) K/mm3 [place] # (Auto) 0.63 H (0.24-0.36) K/mm3 Eos # (Auto) 0.02 L (0.04-0.36) K/mm3 Baso # (Auto) 0.01 (0.01-0.08) K/mm3 SARS-CoV-2 RNA (SAY) Negative (NEGATIVE) Med Orders - Current: Current Medications Diphenhydramine HCl (Diphenhydramine 50 Mg/Ml Sdv) 25 mg IVPUSH Q6H PRN PRN Reason: pruritis Ephedrine Sulfate (Ephedrine 50 Mg/Ml Sdv) 5 mg IVPUSH ASDIRECTED PRN PRN Reason: Hypotension Fentanyl (Fentanyl 100 Mcg/2 Ml Sdv) 100 mcg EPIDUR Q3H PRN PRN Reason: Pain Last Admin: 12/15/20 15:43 Dose: 100 mcg Documented by: Fentanyl/Bupivacaine HCl (Bupivacaine/Fentanyl/Ns 100 Ml Bag) 100 ml EPIDUR ASDIRECTED PRN PRN Reason: Pain Last Admin: 12/15/20 15:44 Dose: 100 ml Documented by: Lactated Ringer's (Ringers, Lactated) 1,000 mls @ 100 mls/hr IV ASDIRECTED SABRINA Last Admin: 12/15/20 15:45 Dose: 999 mls/hr Documented by: Oxytocin/Lactated Ringer's (Pitocin In Lr 20 Units/1,000 Ml) 20 unit in 1,000 mls @ 500 mls/hr IV .CONTINUOUS SABRINA Last Admin: 12/15/20 18:15 Dose: 500 mls/hr Documented by: Nalbuphine HCl (Nalbuphine 10 Mg/1 Ml Vial) 10 mg IVPUSH Q2H PRN PRN Reason: Pain Ondansetron HCl (Ondansetron 4 Mg/2 Ml Sdv) 4 mg IVPUSH Q4H PRN PRN Reason: Nausea/Vomiting Last Admin: 12/15/20 16:38 Dose: 4 mg Documented by: Sodium Chloride (Sodium Chloride 0.9% 10 Ml Syringe) 10 ml FLUSH ASDIRECTED PRN PRN Reason: Keep Vein Open Discontinued Medications Influenza Virus Vaccine (Flu Vacc [id number](6mos Up)/Pf 60 Mcg/0.5 Ml Syringe) 60 mcg IM .ONCE ONE Stop: 12/15/20 15:01 - Exam General: Alert, Oriented HEENT: Pupils Equal, Pupils Reactive, Mucous Membr. Moist/[place] Neck: Supple Lungs: Clear to Auscultation, Normal Respiratory Effort Cardiovascular: Regular Rate, Regular Rhythm GI/Abdominal Exam: Normal Bowel Sounds, Soft, Non-Tender Extremities: Normal Inspection, Non-Tender, No Pedal Edema, Normal Capillary Refill Skin: Warm, Dry, Intact Wound/Incisions: Healing Well Psy/Mental Status: Alert, Normal Affect, Normal Mood - Problem List & Annotations (1) 39 weeks gestation of SNOMED Code(s): 57264938 Code(s): Z3A.39 - 39 WEEKS GESTATION OF Status: Acute Current Visit: Yes (2) Labor and delivery complicated by cord around neck, with compression, not applicable or unspecified SNOMED Code(s): 131289210 Code(s): O69.1XX0 - LABOR AND DELIVERY COMP BY CORD AROUND NECK, W COMPRSN, UNSP Status: Acute Current Visit: Yes (3) Second degree perineal laceration during delivery SNOMED Code(s): 8580409 Code(s): O70.1 - SECOND DEGREE PERINEAL LACERATION DURING DELIVERY Status: Acute Current Visit: Yes - Problem List Review Problem List Initiated/Reviewed/Updated: No - My Orders Last 24 Hours: My Active Orders 12/15/20 Lunch Regular Diet [DIET] 12/15/20 14:12 Non Stress Test [RC] PER UNIT ROUTINE Vaginal Exam [RC] PRN Vital Signs [RC] PER UNIT ROUTINE Resuscitation Status Routine 12/15/20 14:40 Patient Status [ADT] Routine Activity as Tolerated [RC] PFP Communication Order [RC] ASDIRECTED Heart Tones [RC] ASDIRECTED Notify Provider [RC] PFP Notify Provider [RC] PRN Peripheral IV Care [RC] . DIRECTED BLOOD BANK HOLD SPECIMEN [BBK] Stat Nalbuphine [Nubain] 10 mg IVPUSH Q2H PRN Ondansetron [Zofran] 4 mg IVPUSH Q4H PRN Sodium Chloride 0.9% [Saline Flush] 10 ml FLUSH ASDIRECTED PRN Electronic Heart Tones Ext w TOCO [WOMSER] Routine Electronic Heart Tones Internal [WOMSER] Per Unit Routine Peripheral IV Insertion Adult [OM.PC] Routine 12/15/20 14:45 Lactated Ringers [Ringers, Lactated] 1,000 ml IV ASDIRECTED Oxytocin/Lactated Ringers [Pitocin in LR 20 Units/1,000 ML] 20 unit in 1,000 ml IV .CONTINUOUS 12/15/20 14:57 RAPID PLASMA REAGIN,RPR [CHEM] Routine 12/15/20 14:58 Influenza Vaccine Charge [RC] .DISCHARGE - Plan Plan:: Plan labor and delivery. Brief History: [facility] LIVE . L/D Delivery Note. Patient Name: DAI SWEENEY IVELISSEMedical Record Number: [id number]. Date of : 83Patient Status: Inpatient. Attending Provider: Porter Werner Number: [id number]. Date: 12/15/20 18:35Initialization Date: 12/15/20 18:35. L & D Note. - General Info. Date of Service: 12/15/20. Mother's Due Date: 12/19/20. - Delivery Note. Labor: Spontaneous, Augmented by ARM. Delivery Outcome: Livebirth (Friday 1814 hrs. male liveborn GLO under epidural anesthesia over second-degree midline vaginal laceration Apgars 8/9 weight 3390 g / 7 pounds 7.6 ounces nuchal cord tight reduced over the shoulders). Delivery Method: Spontaneous Vaginal Delivery-Single. Infant Delivery Mode: Spontaneous. Presentation: Right Occiput Anterior (GLO). Nuchal Cord: Present (X1 tight). Prep: Povidone-Iodine (Betadine. Anesthesia Type: Epidural. Episiotomy Type: None. Laceration: 2nd Degree (9 sutured with 3-0 Monocryl x2). Suture type: Other (Monocryl). Suture size: 3-0 (2). Placenta: Intact, Spontaneous. Cord: 3 Vessels. Estimated Blood Loss: 650. Provider: Porter Wenrer. Score 1 min: 8. Score 5 min: 9. - General Info. Date of Service: 12/15/20. Functional Status: Reports: Pain Controlled. - Review of Systems. General: Reports: No Symptoms. HEENT: Reports: No Symptoms. Pulmonary: Reports: No Symptoms. Cardiovascular: Reports: No Symptoms. Gastrointestinal: Reports: No Symptoms. Genitourinary: Reports: No Symptoms. Musculoskeletal: Reports: No Symptoms. Skin: Reports: No Symptoms. Neurological: Reports: No Symptoms. Psychiatric: Reports: No Symptoms. - Patient Data. Vitals - Most Recent: Last Vital Signs. Temp 98.4 F 12/15/20 14:12. Pulse 101 H 12/15/20 14:12. Resp 16 12/15/20 14:12. BP 130/76 12/15/20 14:12. Pulse Ox 100 12/15/20 14:12. Weight - Most Recent: 189 lb 6.4 oz. I&O - Last 24 Hours: Intake & Output. 12/15/210212/15/20. 06:5914:5922:59. Intake [id number]. Output [id number]. [id number]. Lab Results Last 24 Hours: Laboratory Results - last 24 hr. 12/15/2102/21Range/Units. 14:4414:57. WBC 7.00 (3.98-10.04) K/mm3. RBC 4.34 (3.98-5.22) M/mm3. Hgb 11.9 (11.2-15.7) gm/dl. Hct 36.7 (34.1-44.9) %. MCV 84.6 (79.4-94.8) fl. MCH 27.4 (25.6-32.2) pg. MCHC 32.4 (32.2-35.5) g/dl. RDW Std Deviation 44.6 (36.4-46.3) fL. Plt Count 241 (182-369) K/mm3. MPV 11.5 (9.4-12.3) fl. Neut % (Auto) 73.2 H (34.0-71.1) %. Lymph % (Auto) 17.1 L (19.3-51.7) %. [place] % (Auto) 9.0 (4.7-12.5) %. Eos % (Auto) 0.3 L (0.7-5.8). Baso % (Auto) 0.1 (0.1-1.2) %. Neut # (Auto) 5.12 (1.56-6.13) K/mm3. Lymph # (Auto) 1.20 (1.18-3.74) K/mm3. [place] # (Auto) 0.63 H (0.24- 0.36) K/mm3. Eos # (Auto) 0.02 L (0.04-0.36) K/mm3. Baso # (Auto) 0.01 (0.01-0.08) K/mm3. SARS-CoV-2 RNA (SAY) Negative (NEGATIVE). Med Orders - Current: Current Medications. Diphenhydramine HCl (Diphenhydramine 50 Mg/Ml S dv) 25 mg IVPUSH Q6H PRN. PRN Reason: pruritis. Ephedrine Sulfate (Ephedrine 50 Mg/Ml Sdv) 5 mg IVPUSH ASDIRECTED PRN. PRN Reason: Hypotension. Fentanyl (Fentanyl 100 Mcg/2 Ml Sdv) 100 mcg EPIDUR Q3H PRN. PRN Reason: Pain. Last Admin: 12/15/20 15:43 Dose: 100 mcg. Documented by: Fentanyl/Bupivacaine HCl (Bupivacaine/Fentanyl/Ns 100 Ml Bag) 100 ml EPIDUR ASDIRECTED PRN. PRN Reason: Pain. Last Admin: 12/15/20 15:44 Dose: 100 ml. Documented by: Lactated Ringer's (Ringers, Lactated) 1,000 mls @ 100 mls/hr IV ASDIRECTED SABRINA. Last Admin: 12/15/20 15:45 Dose: 999 mls/hr. Documented by: Oxytocin/Lactated Ringer's (Pitocin In Lr 20 Units/1,000 Ml) 20 unit in 1,000 mls @ 500 mls/hr IV .CONTINUOUS SABRINA. Last Admin: 12/15/20 18:15 Dose: 500 mls/hr. Documented by: Nalbuphine HCl (Nalbuphine 10 Mg/1 Ml Vial) 10 mg IVPUSH Q2H PRN. PRN Reason: Pain. Ondansetron HCl (Ondansetron 4 Mg/2 Ml Sdv) 4 mg IVPUSH Q4H PRN. PRN Reason: Nausea/Vomiting. Last Admin: 12/15/20 16:38 Dose: 4 mg. Documented by: Sodium Chloride (Sodium Chloride 0.9% 10 Ml Syringe) 10 ml FLUSH ASDIRECTED PRN. PRN Reason: Keep Vein Open. Discontinued Medications. Influenza Virus Vaccine (Flu Vacc [id number](6mos Up)/Pf 60 Mcg/0.5 Ml Syringe) 60 mcg IM .ONCE ONE. Stop: 12/15/20 15:01. - Exam. General: Alert, Oriented. HEENT: Pupils Equal, Pupils Reactive, Mucous Membr. Moist/[place]. Neck: Supple. Lungs: Clear to Auscultation, Normal Respiratory Effort. Cardiovascular: Regular Rate, Regular Rhythm. GI/Abdominal Exam: Normal Bowel Sounds, Soft, Non-Tender. Extremities: Normal Inspection, Non-Tender, No Pedal Edema, Normal Capillary Refill. Skin: Warm, Dry, Intact. Wound/Incisions: Healing Well. Psy/Mental Status: Alert, Normal Affect, Normal Mood. - Problem List & Annotations. (1) 39 weeks gestation of . SNOMED Code(s): 24694176. Code(s): Z3A.39 - 39 WEEKS GESTATION OF Status: Acute Current Visit: Yes. (2) Labor and delivery complicated by cord around neck, with compression, not applicable or unspecified. SNOMED Code(s): 836940187. Code(s): O69.1XX0 - LABOR AND DELIVERY COMP BY CORD AROUND NECK, W COMPRSN, UNSP Status: Acute Current Visit: Yes. (3) Second degree perineal laceration during delivery. SNOMED Code(s): 8719548. Code(s): O70.1 - SECOND DEGREE PERINEAL LACERATION DURING DELIVERY Status: Acute Current Visit: Yes. - Problem List Review. Problem List Initiated/Reviewed/Updated: No. - My Orders. Last 24 Hours: My Active Orders. 12/15/20 Lunch. Regular Diet [DIET]. 12/15/20 14:12. Non Stress Test [RC] PER UNIT ROUTINE. Vaginal Exam [RC] PRN. Vital Signs [RC] PER UNIT ROUTINE. Resuscitation Status Routine. 12/15/20 14:40. Patient Status [ADT] Routine. Activity as Tolerated [RC] PFP. Communication Order [RC] ASDIRECTED. Heart Tones [RC] ASDIRECTED. Notify Provider [RC] PFP. Notify Provider [RC] PRN. Peripheral IV Care [RC] . DIRECTED. BLOOD BANK HOLD SPECIMEN [BBK] Stat. Nalbuphine [Nubain] 10 mg IVPUSH Q2H PRN. Ondansetron [Zofran] 4 mg IVPUSH Q4H PRN. Sodium Chloride 0.9% [Saline Flush] 10 ml FLUSH ASDIRECTED PRN. Electronic Heart Tones Ext w TOCO [WOMSER] Routine. Electronic Heart Tones Internal [WOMSER] Per Unit Routine. Peripheral IV Insertion Adult [OM.PC] Routine. 12/15/20 14:45. Lactated Ringers [Ringers, Lactated] 1,000 ml IV ASDIRECTED. Oxytocin/Lactated Ringers [Pitocin in LR 20 Units/1,000 ML] 20 unit in 1,000 ml IV .CONTINUOUS. 12/15/20 14:57. RAPID PLASMA REAGIN,RPR [CHEM] Routine. 12/15/20 14:58. Influenza Vaccine Charge [RC] .DISCHARGE. - Plan. Plan:: Plan labor and delivery. Diagnosis: Stroke: No - Discharge Data Discharge Date: 12/17/20 Discharge Disposition: Home, Self-Care 01 Condition: Good - Referral to Home Health Primary Care Physician: Adeel Gibbons MD - Discharge Diagnosis/Problem(s) (1) 39 weeks gestation of SNOMED Code(s): 07806712 ICD Code: Z3A.39 - 39 WEEKS GESTATION OF Status: Acute Current Visit: Yes (2) Labor and delivery complicated by cord around neck, with compression, not applicable or unspecified SNOMED Code(s): 701659311 ICD Code: O69.1XX0 - LABOR AND DELIVERY COMP BY CORD AROUND NECK, W COMPRSN, UNSP Status: Acute Current Visit: Yes (3) Second degree perineal laceration during delivery SNOMED Code(s): 1166136 ICD Code: O70.1 - SECOND DEGREE PERINEAL LACERATION DURING DELIVERY Status: Acute Current Visit: Yes - Patient Instructions Diet: Usual Diet as Tolerated Driving: Do Not Drive (48 hours) Showering/Bathing: May Shower Notify Provider of: Fever, Increased Pain, Swelling and Redness, Drainage, Nausea and/or Vomiting - Discharge Plan *PRESCRIPTION DRUG MONITORING PROGRAM REVIEWED*: Not Applicable *COPY OF PRESCRIPTION DRUG MONITORING REPORT IN PATIENT JIMMIE: Not Applicable Home Medications: Home Meds Pnv No.95/Ferrous Fum/Folic AC [ Tablet] 1 tab PO DAILY 06/29/19 [History] Aspirin 81 mg PO DAILY 12/15/20 [History] Doxylamine Succinate [Unisom] 25 mg PO BEDTIME PRN 12/15/20 [History] Folic Acid 1 mg PO DAILY 12/15/20 [History] Acetaminophen [Tylenol] 650 mg PO Q6H PRN tablet 12/17/20 [Rx] Docusate Sodium [Colace] 100 mg PO BID PRN cap 12/17/20 [Rx] Ibuprofen [Motrin] 600 mg PO Q6H PRN tablet 12/17/20 [Rx] witch Suri [Tucks] 1 pad TOP ASDIRECTED PRN pad 12/17/20 [Rx] Referrals: Adeel Gibbons MD [Primary Care Provider] - (Call Friday for appointment to see Dr. Gibbons in 2 weeks) - Discharge Summary/Plan Comment DC Time >30 min.: No - Patient Data Vitals - Most Recent: Last Vital Signs Temp 97.7 F 12/17/20 08:57 Pulse 93 12/17/20 08:57 Resp 16 12/17/20 08:57 BP 120/80 12/17/20 08:57 Pulse Ox 97 12/17/20 08:57 Weight - Most Recent: 189 lb 6.4 oz Med Orders - Current: Current Medications Acetaminophen (Acetaminophen 325 Mg Tab) 650 mg PO Q4H PRN PRN Reason: mild pain or fever Last Admin: 12/16/20 08:02 Dose: 650 mg Documented by: Benzocaine/Menthol (Benzocaine/Menthol 20%-0.5% Bomoseen 56 Gm Canister) 0 gm TOP ASDIRECTED PRN PRN Reason: Perineal Comfort Measure Last Admin: 12/15/20 20:06 Dose: 1 applic Documented by: Docusate Sodium (Docusate Sodium 100 Mg Cap) 100 mg PO BID PRN PRN Reason: Constipation Last Admin: 12/17/20 08:52 Dose: 100 mg Documented by: Ibuprofen (Ibuprofen 600 Mg Tab) 600 mg PO Q4H PRN PRN Reason: Mild pain or fever Last Admin: 12/17/20 08:52 Dose: 600 mg Documented by: Rai Higuera (Rai Higuera Medicated Pads 40/Jar) 1 pad TOP ASDIRECTED PRN PRN Reason: Perineal Comfort Measure Last Admin: 12/15/20 20:05 Dose: 1 applic Documented by: Discontinued Medications Diphenhydramine HCl (Diphenhydramine 50 Mg/Ml Sdv) 25 mg IVPUSH Q6H PRN PRN Reason: pruritis Ephedrine Sulfate (Ephedrine 50 Mg/Ml Sdv) 5 mg IVPUSH ASDIRECTED PRN PRN Reason: Hypotension Fentanyl (Fentanyl 100 Mcg/2 Ml Sdv) 100 mcg EPIDUR Q3H PRN PRN Reason: Pain Last Admin: 12/15/20 15:43 Dose: 100 mcg Documented by: Fentanyl/Bupivacaine HCl (Bupivacaine/Fentanyl/Ns 100 Ml Bag) 100 ml EPIDUR ASDIRECTED PRN PRN Reason: Pain Last Admin: 12/15/20 15:44 Dose: 100 ml Documented by: Lactated Ringer's (Ringers, Lactated) 1,000 mls @ 100 mls/hr IV ASDIRECTED SABRINA Last Admin: 12/15/20 15:45 Dose: 999 mls/hr Documented by: Oxytocin/Lactated Ringer's (Pitocin In Lr 20 Units/1,000 Ml) 20 unit in 1,000 mls @ 500 mls/hr IV .CONTINUOUS SABRINA Last Admin: 12/15/20 18:15 Dose: 500 mls/hr Documented by: Influenza Virus Vaccine (Flu Vacc [id number](6mos Up)/Pf 60 Mcg/0.5 Ml Syringe) 60 mcg IM .ONCE ONE Stop: 12/15/20 15:01 Last Admin: 12/17/20 08:53 Dose: 60 mcg Documented by: Lidocaine/Epinephrine (Lidocaine 1.5% With Epinephrine 1:200,000 5 Ml Amp) 5 ml .ROUTE .[facility] Stop: 12/15/20 15:01 Nalbuphine HCl (Nalbuphine 10 Mg/1 Ml Vial) 10 mg IVPUSH Q2H PRN PRN Reason: Pain Ondansetron HCl (Ondansetron 4 Mg/2 Ml Sdv) 4 mg IVPUSH Q4H PRN PRN Reason: Nausea/Vomiting Last Admin: 12/15/20 16:38 Dose: 4 mg Documented by: Sodium Chloride (Sodium Chloride 0.9% 10 Ml Syringe) 10 ml FLUSH ASDIRECTED PRN PRN Reason: Keep Vein Open
== END 2020-12-17 11:10 | disposition home or self-care (01) | DRG 560 ==
LOC: JD.OBCHECK 14:11 → JD.OB 14:29 → JD.OBCHECK 14:40 → OBSVTOIN 18:14 → JD.OB 18:15
PROVIDERS: ADMIT Obstetrics & Gynecology; ATTEND Obstetrics & Gynecology
PROC: 10E0XZZ Delivery of Products of Conception, External Approach (ICD-10-PCS; principal; 2020-12-15)
PROC: 0KQM0ZZ Repair Perineum Muscle, Open Approach (ICD-10-PCS; 2020-12-15)
PROC: 10907ZC Drainage of Amniotic Fluid, Therapeutic from Products of Conception, Via Natural or Artificial Opening (ICD-10-PCS; 2020-12-15)
PROC: 3E0R3BZ Introduction of Anesthetic Agent into Spinal Canal, Percutaneous Approach (ICD-10-PCS; 2020-12-15)
PROC: 00HU33Z Insertion of Infusion Device into Spinal Canal, Percutaneous Approach (ICD-10-PCS; 2020-12-15)
PROC: 3E02340 Introduction of Influenza Vaccine into Muscle, Percutaneous Approach (ICD-10-PCS; 2020-12-17)
DX: O69.1XX0 Labor and delivery complicated by cord around neck, with compression, not applicable or unspecified (principal); Z37.0 Single live birth; O70.1 Second degree perineal laceration during delivery; Z20.822 Contact with and (suspected) exposure to COVID-19; Z3A.39 39 weeks gestation of pregnancy; Z79.82 Long term (current) use of aspirin; Z91.09 Other allergy status, other than to drugs and biological substances; Z23 Encounter for immunization
CPT/HCPCS: 01967; 36415; 51702; 59025; 59409; 85025; 86592; 90686; A9270-GY; G0008; J2405; J2590; J3010; J7120; U0002

== ENCOUNTER 2022-12-21 08:01 | Inpatient (IN) | payer BC ==
[2022-12-21] MEDS ORDERED: Sodium Chloride 0.9% 10 ML Syringe FLUSH PRN (08:33)
[2022-12-21] MEDS ORDERED: Nalbuphine 10 MG/0.5 ML Syringe IVPUSH PRN (08:33)
[2022-12-21] MEDS ORDERED: Ondansetron 4 MG/2 ML SDV IVPUSH PRN (08:33)
[2022-12-21] MEDS ORDERED: Oxytocin/Lactated Ringers 10 UNIT/1,000 ML BAG IV SCH ×2 (08:45)
[2022-12-21] MEDS: Lactated Ringers 1,000 ML IV SCH ×2 (08:52→14:10)
[2022-12-21] MEDS ORDERED: Sodium Chloride 0.9% 10 ML Syringe FLUSH SCH (09:00)
[2022-12-21] MEDS ORDERED: Ropivacaine 0.2% PF 2 MG/ML 20 ML SDV ONE (12:00)
[2022-12-21] MEDS ORDERED: Bupivacaine/fentaNYL/NS 100 ML Bag EPIDUR PRN (13:45)
[2022-12-21] MEDS ORDERED: diphenhydrAMINE 50 MG/ML SDV IVPUSH PRN (13:45)
[2022-12-21] MEDS ORDERED: ePHEDrine 50 MG/ML SDV IVPUSH PRN (13:45)
[2022-12-21] MEDS ORDERED: fentaNYL 100 MCG/2 ML SDV EPIDUR PRN (13:45)
[2022-12-21] MEDS ORDERED: Docusate Sodium 100 MG Cap PO PRN (15:42)
[2022-12-21] MEDS ORDERED: Witch Hazel Medicated Pads 40/Jar TOP PRN (15:42)
[2022-12-21] MEDS ORDERED: Benzocaine/Menthol 20%-0.5% Spray 78 GM Cannister TOP PRN (15:42)
[2022-12-22] MEDS: Ibuprofen 600 MG Tab PO PRN ×2 (10:22→21:09)
[2022-12-22] MEDS: Acetaminophen 325 MG Tab PO PRN (12:07)
[2022-12-22] MEDS ORDERED: Acetaminophen/oxyCODONE 325-5 MG Tab PO ONE (18:35)
[2022-12-23] MEDS: Ibuprofen 600 MG Tab PO PRN (03:33)
[2022-12-23] MEDS: Acetaminophen 325 MG Tab PO PRN (03:35)
== END 2022-12-23 10:05 | disposition home or self-care (01) | DRG 560 ==
LOC: JD.OBCHECK 08:01 → JD.OB 08:04 → JD.OBCHECK 08:33 → JD.OB 08:34 → OBSVTOIN 15:04 → JD.OB 15:05
PROVIDERS: ADMIT Obstetrics & Gynecology; ATTEND Obstetrics & Gynecology
PROC: 0HQ9XZZ Repair Perineum Skin, External Approach (ICD-10-PCS; principal; 2022-12-21)
PROC: 00HU33Z Insertion of Infusion Device into Spinal Canal, Percutaneous Approach (ICD-10-PCS; principal; 2022-12-21)
PROC: 3E0R3BZ Introduction of Anesthetic Agent into Spinal Canal, Percutaneous Approach (ICD-10-PCS; principal; 2022-12-21)
PROC: 10E0XZZ Delivery of Products of Conception, External Approach (ICD-10-PCS; principal; 2022-12-21)
DX: O42.02 Full-term premature rupture of membranes, onset of labor within 24 hours of rupture (principal); O32.0XX0 Maternal care for unstable lie, not applicable or unspecified; Z3A.39 39 weeks gestation of pregnancy; Z37.0 Single live birth; O70.0 First degree perineal laceration during delivery; Z88.8 Allergy status to other drugs, medicaments and biological substances
CPT/HCPCS: 01967; 59025; 59409; A9270-GY; J2590; J2795; J3490; J7120